=== PATIENT | male | born 1990 | race Caucasian/White ===

== ENCOUNTER → 2020-07-11 12:42 | Outpatient (CLI) | payer OTHER, SELFPAY ==
[2020-07-11] MEDS: COVID-19 VACC, Ad26(JANSSEN)/PF 0.5 ML IM (12:58)
== END ==
PROVIDERS: Visit Provider Internal Medicine
DX: Z23 Encounter for immunization (principal)
CPT/HCPCS: 0031A; 91303

== ENCOUNTER 2021-01-19 07:47 | Emergency (ER) | payer OTHER, SELFPAY ==
[2021-01-19] VITALS (10 sets, daily range): BP systolic 114–143; BP diastolic 69–84; PULSE 48–66; RESP 11–20; TEMP 36.1; O2SAT 100; BMI 20.4
--- NOTE | 2021-01-19 08:01 | DI.CT.S_ITS ---
PROCEDURE: CT HEAD/BRAIN WO CON INDICATIONS: Chest pain TECHNIQUE: Noncontrast 4.5 mm thick angled axial sections acquired from the foramen magnum to the vertex, with coronal and sagittal reformats. For radiation dose reduction, the following was used: automated exposure control, adjustment of mA and/or kV according to patient size. COMPARISON: None. FINDINGS: Image quality: This examination is limited by involuntary motion artifact. Mild streak artifact can be seen through the skull base. CSF spaces: Basal cisterns are patent. No extra-axial fluid collections. Ventricles are normal in size and shape. Brain: No midline shift. No intracranial masses or hemorrhage. Mercado-white matter interface is normal. Skull and face: Calvarium and visualized facial bones are intact, without suspicious lesions. Sinuses: Visualized sinuses and mastoids are clear. IMPRESSION: No acute intracranial process is seen. Dictated by: Barry Trevino M.D. on 01/19/2021 at 8:36 Approved by: Barry Trevino M.D. on 01/19/2021 at 8:37
--- NOTE | 2021-01-19 08:02 | DI.CT.S_ITS ---
PROCEDURE: CT ANGIO CHEST ABDOMEN PELVIS INDICATIONS: Chest pain/flank pain TECHNIQUE: Precontrast 5 mm thick sections acquired from the lung apices to the iliac crests. After the administration of intravenous contrast, 2.5 mm thick sections again acquired from the lung apices to the iliac crests. Maximum intensity projection (MIP) oblique sagittal and coronal reformats were then acquired. For radiation dose reduction, the following was used: automated exposure control. COMPARISON: None. FINDINGS: Image quality: Excellent. AORTA: The thoracoabdominal aorta is within normal limits with no evidence of dissection, aneurysm, or significant stenosis. CHEST: Lungs and pleura: No acute airspace opacities. No pleural effusions or pneumothorax. Central and peripheral airways are patent and normal in caliber. Mediastinum: Heart size is normal. No pericardial effusion. No mediastinal or hilar adenopathy by size criteria. Central pulmonary arteries are normal in size. No filling defects are seen within the pulmonary arteries to indicate pulmonary embolus. Esophagus is normal in caliber. There is diffuse mild thickening of the mid and distal esophagus. No hiatal hernias. Bones and chest wall: No axillary adenopathy by size criteria. Thyroid gland is grossly normal . No suspicious bony lesions. No vertebral body compression fractures. ABDOMEN: Vasculature: Celiac trunk and mesenteric arteries are patent. Renal arteries are also patent. Solid organs: Liver is normal in size and enhancement. Gallbladder is grossly unremarkable . Biliary system is non dilated. Pancreas enhances normally. Spleen is normal in size and enhancement. No adrenal nodules. No right hydronephrosis. Normal renal enhancement bilaterally. Mild left hydronephrosis and left ureteral dilatation. There is a 7 mm diameter calculus at the left ureterovesical junction with Hounsfield units of 644. Peritoneum and bowel: No pneumoperitoneum. Small amount of free fluid within the pelvis. Bowel loops are normal in caliber and wall thickness. Nodes and vessels: No retroperitoneal or mesenteric adenopathy by size criteria. Inferior vena cava is normal in morphology. Miscellaneous: No ventral hernias. PELVIS: Genitourinary: Bladder wall thickness is normal. Miscellaneous: No inguinal hernias or adenopathy. No ventral hernias. Bones: No suspicious bony lesions. No vertebral body compression fractures. IMPRESSION: 1. Distal left ureteral calculus associated with mild left hydronephrosis. 2. Thickening of the esophagus. Initial further assessment with endoscopy is recommended to assess for infection versus inflammation versus neoplasm. 3. Otherwise negative CT angiography of the chest, abdomen, and pelvis. Dictated by: Ashley Xavier M.D. on 01/19/2021 at 10:06 Approved by: Ashley Xavier M.D. on 01/19/2021 at 10:26
--- NOTE | 2021-01-19 08:03 | ED_ITS ---
HPI - Chest Pain General Chief Complaint: Back Pain/Injury Stated Complaint: Back pain, sweats, faint Time Seen by Provider: 01/19/21 07:53 History of Present Illness HPI narrative: Patient brought here by girlfriend. Patient complains of left flank pain and sweats. [place] lightheaded. Pain radiates to the left groin. Patient in the past month has had 3 or 4 episodes of chest pain and 1 episode with syncope. Has been seen by his family doctor during the past 4 weeks and is scheduled for outpatient echocardiogram and Holter monitor. Patient states has had off and on chest pain in the past 5 years. But no workup until this year/past month. Does have family history of coronary disease. No known history of aortic disease/aneurysm/dissection. Patient feeling better at this time. In no distress. Skin is warm and pink and dry. He did have left flank pain. It has improved. Did have right arm tingling which has resolved. No history of Marfan's syndrome. No history of pneumothorax. No urinary complaints. No prior history of kidney stone. Patient in no distress at this time. Related Data Home Medications Medication Instructions Recorded Confirmed cetirizine 10 mg capsule (Zyrtec) 10 mg PO DAILY 01/19/21 01/19/21 citalopram 20 mg tablet 20 mg PO DAILY 01/19/21 01/19/21 Previous Rx's Medication Instructions Recorded hydrocodone 5 mg-acetaminophen 325 1 tab PO Q6H PRN #16 tab 01/19/21 mg tablet promethazine 25 mg tablet 25 mg PO TID PRN #10 tab 01/19/21 tamsulosin 0.4 mg capsule 0.4 mg PO DAILY #7 cap 01/19/21 Allergies Allergy/AdvReac Type Severity Reaction Status Date / Time No Known Drug Allergies Allergy Verified 01/19/21 09:54 Review of Systems Review of Systems Narrative: GENERAL: Denies chills, fatigue, malaise, fever, sweats. HEENT: Denies sinus pain, ear pain, sore throat RESPIRATORY: Denies dyspnea, cough CARDIOVASCULAR: Positive chest pain, negative palpitations GASTROINTESTINAL: Denies nausea, vomiting, abdominal pain, positive flank pain : Denies dysuria, frequency, hematuria MUSCULOSKELETAL: denies muscle or bony pain SKIN: Denies rash, skin lesions NEUROLOGIC: Denies weakness, positive for numbness, positive for dizziness ROS Unobtainable: All systems reviewed & are unremarkable except as noted in HPI and below Patient History Social History Smoking Status: Current every day smoker Exam Narrative Exam Narrative: GENERAL: in no distress, not toxic not dyspneic, shirt removed HEAD: Normocephalic. EYES: Pupils equal round No scleral icterus. ENT: Mucous membranes moist. NECK: Trachea midline. CARDIOVASCULAR: Regular rate and rhythm without murmurs, strong bilateral carotid and radial pulses. RESPIRATORY: Clear to auscultation. Breath sounds equal bilaterally. No wheezes, rales, or rhonchi. GASTROINTESTINAL: Abdomen soft, non-tender, no bruit, abdomen is flat nontender, no peritoneal signs, bowel sounds present EXTREMITIES: No gross deformities. BACK: No flank tenderness. NEURO: AOx4. Clear speech no facial droop light touch intact to bilateral face hands and legs. 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 It will be 1 hour until they get to imaging No new issues during course of stay. Orders Ordered: Discontinued Medications Sodium Chloride (Normal Saline 0.9%) 1,000 mls @ 1,000 mls/hr IV BOLUS ONE Stop: 01/19/21 09:01 Last Infusion: 01/19/21 11:34 Dose: 0 mls/hr Documented by: Admin: 01/19/21 09:49 Dose: 1,000 mls/hr Documented by: KIMBERLY Ketorolac Tromethamine (Ketorolac 30 Mg/Ml Vial) 15 mg IV NOW ONE Stop: 01/19/21 10:57 Last Admin: 01/19/21 11:27 Dose: 15 mg Documented by: LEIDA Tamsulosin HCl (Tamsulosin 0.4 Mg Capsule) 0.4 mg PO NOW ONE Stop: 01/19/21 11:50 Last Admin: 01/19/21 12:06 Dose: 0.4 mg Documented by: BTONER Reevaluation(s) Reevaluation #1: Patient pain-free at this time. Echocardiogram results are pending. Updated patient and girlfriend results of CT imaging. Pain-free at this time. Time: 11:49 Reevaluation #2: Patient pain-free. Able to urinate and void here. Reviewed results with patient and girlfriend and echocardiogram Time: 12:14 Consultations Consultation #1: Spoke with primary care, Dr. Jennings. Patient could be discharged and follow up with him for outpatient Holter monitor and stress test. Patient can be follow up with Urology for his new finding today of kidney stone. Time: 11:59 Vital Signs Vital signs: Vital Signs - 8 hr 01/19/21 08:00 01/19/21 08:13 01/19/21 08:30 Temperature 96.9 F L Pulse Rate 54 L 66 54 L Respiratory Rate 20 Blood Pressure 143/77 H 116/71 Pulse Oximetry 100 100 100 01/19/21 09:45 01/19/21 09:46 01/19/21 10:00 Temperature Pulse Rate 61 54 L 48 L Respiratory Rate 11 L Blood Pressure 114/69 126/84 Pulse Oximetry 100 100 01/19/21 10:34 01/19/21 11:00 01/19/21 11:30 Temperature Pulse Rate 55 L 57 L 60 Respiratory Rate 16 17 11 L Blood Pressure 132/81 132/71 Pulse Oximetry 100 MDM - Chest Pain Differential Diagnosis Differential diagnosis: Likely pneumothorax, stable angina, unstable angina pectoris, atypical chest pain, chest pain and other (Pulmonary embolism/dissection) Lab Data Result diagrams: 01/19/21 08:00 01/19/21 08:00 Labs: Lab Results 01/19/21 01/19/21 01/19/21 Range/Units 08:00 08:00 08:45 WBC 6.6 (4.5-11.0) X10^3/uL RBC 4.72 (4.5-5.9) X10^6/uL Hgb 14.2 (13.5-17.5) g/dL Hct 41.8 (41-53) % MCV 88.6 (80-100) fL MCH 30.2 (26-34) PG MCHC 34.1 (30-36) % RDW 13.7 (11.6-14.8) % Plt Count 158 (150-400) X10^3/uL Neut % (Auto) 57.0 (50-75) % Lymph % (Auto) 32.0 (25-40) % [place] % (Auto) 7.0 (3-14) % Eos % (Auto) 3.0 (2-4) % Baso % (Auto) 1.0 (0-2) % Neut # (Auto) 3800 (5419-7864) /uL Lymph # (Auto) 2100 (0142-6825) /uL [place] # (Auto) 500 (0-900) /uL Eos # (Auto) 200 (0-450) /uL Baso # (Auto) 100 (0-100) /uL Sodium 140 (137-145) mmol/L Potassium 4.2 (3.4-5.1) mmol/L Chloride 103 (98-107) mmol/L Carbon Dioxide 28 (22-32) mmol/L BUN 11 (9-20) mg/dL Creatinine 0.85 (0.66-1.25) mg/dL Estimated GFR > 60.0 (>60) mL/min BUN/Creatinine Ratio 12.9 (6-22) Glucose 126 H (70-100) mg/dL Calcium 9.5 (8.4-10.2) mg/dL Magnesium 1.9 (1.6-2.3) mg/dL Total Bilirubin 0.3 (0.2-1.3) mg/dL AST 26 (17-59) IU/L ALT 23 (<50) IU/L Alkaline Phosphatase 54 (38-126) U/L Total Creatine Kinase 109 (55-170) U/L CK-MB (CK-2) 0.52 (<2.37) ng/mL CK-MB (CK-2) Rel Index 0.5 L (1.5-5.0) % Troponin I < 0.012 (0.01-0.034) ng/mL Total Protein 7.2 (6.3-8.2) g/dL Albumin 4.5 (3.5-5.0) g/dL Globulin 2.7 (1.7-4.1) g/dL Albumin/Globulin Ratio 1.7 (1.0-2.8) Urine RBC 1-5/hpf (0-5/HPF) Urine WBC 0-1/hpf (0-5/HPF) Ur Squamous Epith Cells 1-5 /hpf (0-5/HPF) Urine Bacteria None seen (None) Ur Culture Indicated? Cult not indicated SARS-CoV-2 (PCR) (Negative) 01/19/21 Range/Units 09:54 WBC (4.5-11.0) X10^3/uL RBC (4.5-5.9) X10^6/uL Hgb (13.5-17.5) g/dL Hct (41-53) % MCV (80-100) fL MCH (26-34) PG MCHC (30-36) % RDW (11.6-14.8) % Plt Count (150-400) X10^3/uL Neut % (Auto) (50-75) % Lymph % (Auto) (25-40) % [place] % (Auto) (3-14) % Eos % (Auto) (2-4) % Baso % (Auto) (0-2) % Neut # (Auto) (1755-7148) /uL Lymph # (Auto) (8212-6236) /uL [place] # (Auto) (0-900) /uL Eos # (Auto) (0-450) /uL Baso # (Auto) (0-100) /uL Sodium (137-145) mmol/L Potassium (3.4-5.1) mmol/L Chloride (98-107) mmol/L Carbon Dioxide (22-32) mmol/L BUN (9-20) mg/dL Creatinine (0.66-1.25) mg/dL Estimated GFR (>60) mL/min BUN/Creatinine Ratio (6-22) Glucose (70-100) mg/dL Calcium (8.4-10.2) mg/dL Magnesium (1.6-2.3) mg/dL Total Bilirubin (0.2-1.3) mg/dL AST (17-59) IU/L ALT (<50) IU/L Alkaline Phosphatase (38-126) U/L Total Creatine Kinase (55-170) U/L CK-MB (CK-2) (<2.37) ng/mL CK-MB (CK-2) Rel Index (1.5-5.0) % Troponin I (0.01-0.034) ng/mL Total Protein (6.3-8.2) g/dL Albumin (3.5-5.0) g/dL Globulin (1.7-4.1) g/dL Albumin/Globulin Ratio (1.0-2.8) Urine RBC (0-5/HPF) Urine WBC (0-5/HPF) Ur Squamous Epith Cells (0-5/HPF) Urine Bacteria (None) Ur Culture Indicated? SARS-CoV-2 (PCR) Negative (Negative) Urine Dip Bedside Urine Glucose Negative Bedside Urine Bilirubin - Negative Bedside Urine Ketone - Negative Urine Specific [place] 1.020 Bedside Urine Occult Blood +++ Bedside Urine pH 6.5 Bedside Urine Protein +/- 15 Bedside Urine Urobilinogen - Negative Bedside Urine Nitrite - Negative Bedside Urine Leukocytes - Negative Esterase Imaging Data CT scan - head: Radiologist's Impression: [address] [address] [address] Scan Report Signed Patient: Nesha Reed MR#: [id number] : 1990 Acct:[id number] Age/Sex: 31 / M Date of Service: 01/19/21 Loc: ED Accession Number: [id number] ?? Procedure: CT head/brain wo con Ordering Provider: Sarah Fabian MD PROCEDURE:? CT HEAD/BRAIN WO CON ? INDICATIONS:? Chest pain ? TECHNIQUE:? Noncontrast 4.5 mm thick angled axial sections acquired from the foramen magnum to the vertex, with coronal and sagittal reformats.? For radiation dose reduction, the following was used:? automated exposure control, adjustment of mA and/or kV according to patient size.? ? COMPARISON:? None. ? FINDINGS:? Image quality:? This examination is limited by involuntary motion artifact.? Mild streak artifact can be seen through the skull base. ? CSF spaces:? Basal cisterns are patent.? No extra-axial fluid collections.? Ventricles are normal in size and shape.? ? Brain:? No midline shift.? No intracranial masses or hemorrhage.? Mercado-white matter interface is normal.? ? Skull and face:? Calvarium and visualized facial bones are intact, without suspicious lesions.? ? Sinuses:? Visualized sinuses and mastoids are clear.? ? IMPRESSION:? ? No acute intracranial process is seen.? ? ? Dictated by: Barry Trevino M.D. on 01/19/2021 at 8:36 ? ? Approved by: Barry Trevino M.D. on 01/19/2021 at 8:37 ? CT angiogram chest abdomen pelvis: Radiologist's Impression: [place] [address] CT Scan Report Signed Patient: Nesha Reed MR#: [id number] : 1990 Acct:[id number] Age/Sex: 31 / M Date of Service: 01/19/21 Loc: ED Accession Number: [id number] ?? Procedure: CT angio chest abdomen pelvis Ordering Provider: Sarah Fabian MD PROCEDURE:? CT ANGIO CHEST ABDOMEN PELVIS ? INDICATIONS:? Chest pain/flank pain ? TECHNIQUE:? Precontrast 5 mm thick sections acquired from the lung apices to the iliac crests.? After the administration of intravenous contrast, 2.5 mm thick sections again acquired from the lung apices to the iliac crests.? Maximum intensity projection (MIP) oblique sagittal and coronal reformats were then acquired.? For radiation dose reduction, the following was used:? automated exposure control.? ? COMPARISON:? None. ? FINDINGS:? Image quality:? Excellent.? ? AORTA:? The thoracoabdominal aorta is within normal limits with no evidence of dissection, aneurysm, or significant stenosis. ? CHEST:? Lungs and pleura:? No acute airspace opacities.? No pleural effusions or pneumothorax.? Central and peripheral airways are patent and normal in caliber.? ? Mediastinum:? Heart size is normal.? No pericardial effusion.? No mediastinal or hilar adenopathy by size criteria.? Central pulmonary arteries are normal in size.? No filling defects are seen within the pulmonary arteries to indicate pulmonary embolus.? Esophagus is normal in caliber.? There is diffuse mild thickening of the mid and distal esophagus.? No hiatal hernias.? ? Bones and chest wall:? No axillary adenopathy by size criteria.? Thyroid gland is grossly normal .? No suspicious bony lesions.? No vertebral body compression fractures.? ? ? ABDOMEN:? Vasculature:? Celiac trunk and mesenteric arteries are patent.? Renal arteries are also patent.? ? Solid organs:? Liver is normal in size and enhancement.? Gallbladder is grossly unremarkable .? Biliary system is non dilated.? Pancreas enhances normally.? Spleen is normal in size and enhancement.? No adrenal nodules.? No right hydronephrosis.? Normal renal enhancement bilaterally.? Mild left hydronephrosis and left ureteral dilatation.? There is a 7 mm diameter calculus at the left ureterovesical junction with Hounsfield units of 644. ? Peritoneum and bowel:? No pneumoperitoneum.? Small amount of free fluid within the pelvis.? Bowel loops are normal in caliber and wall thickness.? ? Nodes and vessels:? No retroperitoneal or mesenteric adenopathy by size criteria.? Inferior vena cava is normal in morphology.? ? Miscellaneous:? No ventral hernias.? ? ? PELVIS:? Genitourinary:? Bladder wall thickness is normal.? ? Miscellaneous:? No inguinal hernias or adenopathy.? No ventral hernias.? ? Bones:? No suspicious bony lesions.? No vertebral body compression fractures.? ? ? IMPRESSION:? 1. Distal left ureteral calculus associated with mild left hydronephrosis. 2. Thickening of the esophagus.? Initial further assessment with endoscopy is recommended to assess for infection versus inflammation versus neoplasm. 3. Otherwise negative CT angiography of the chest, abdomen, and pelvis. ? Dictated by: Ashley Xavier M.D. on 01/19/2021 at 10:06 ? ? Approved by: Ashley Xavier M.D. on 01/19/2021 at 10:26 ? Echocardiogram: Radiologist's Impression: [place] [address] Echocardiography Report Signed Patient: Nesha Reed MR#: [id number] : 1990 Acct:[id number] Age/Sex: 31 / M Date of Service: 01/19/21 Loc: ED Accession Number: [id number] ?? Procedure: EC echo limited Ordering Provider: Sarah Fabian MD ? [facility] +---------+? [facility]? +---------+ : ? :? [address] ? : ? : : ? :? [place], [place] ? : ? : : ? :? [address] ? : ? : : ? : ? Phone: [phone] : ? : [phone]? [phone]? +---------+ ? Echocardiogram Report + + :Name: NESHA REED ? Study Date: 01/19/2021? Height: 73 in : :Hospital ? ? ReadingLocation:? Weight: 155 lb: : ? Gender: Male? BSA: 1.9 m2 ? : :: 1990? Age: 31 yrs ? : :Reason For Study: Chest pain / syncope ? : :Ordering Physician:? : :KATIE ? Performed By: Karl Cates? : :Referring: SARAH FABIAN ? : + + Interpretation Summary The ejection fraction is estimated to be 60-65%. ? The right ventricle is grossly normal size. The right ventricular systolic function is normal. ? The IVC is dilated (diameter is greater than 2.1 cm) and it collapses less than 50% with a sniff. This suggests a high right atrial pressure of 15 mm Hg. ? Procedure: ? A two-dimensional transthoracic echocardiogram with color flow and Doppler was performed in limited views only to assess LVEF. Images from the parasternal window were difficult to obtain and are suboptimal in quality. There is no prior echocardiogram noted for this patient. The patient was in normal sinus rhythm during the exam. Left Ventricle: ? The left ventricle is normal in size and wall thickness. The ejection fraction is estimated to be 60-65%. Right Ventricle: ? The right ventricle is grossly normal size. The right ventricular systolic function is normal. Atria: ? Both atria are normal in size. Mitral Valve: ? The mitral valve leaflets appear normal. There is no evidence of stenosis, fluttering, or prolapse. Tricuspid Valve: ? The tricuspid valve is normal. Pulmonary artery pressures cannot be estimated because of the lack of a measurable TR jet velocity but the IVC suggests a CVP of around 15 mmHg. There is trace tricuspid regurgitation. Great Vessels: ? The IVC is dilated (diameter is greater than 2.1 cm) and it collapses less than 50% with a sniff. This suggests a high right atrial pressure of 15 mm Hg. Pericardium/ Pleura ? There is no pericardial effusion. There is no pleural effusion. ? MMode/2D Measurements & Calculations LVIDd: 5.1 cm ? IVC diam: 2.2 cm LVIDs: 4.4 cm FS: 13.7 % IVSd: 0.50 cm LVPWd: 1.0 cm LV turcios. diameter/BSA (cm/m^2): 2.6 LV sys. diameter/BSA (cm/m^2): 2.3 ? Reading Physician:11:49 AM ECG Data Interpretation: Sinus bradycardia rate [address] elevation or depression. Incomplete right bundle branch block. MDM Narrative Medical decision making narrative: Appropriate for discharge home. I reviewed results with primary care Dr. Jennings, patient can be discharged home follow-up with urology for today's complaints of kidney stone. Pain is controlled. Patient here today for any chest pain. EKG blood work echocardiogram was completed here. He will continue patient workup for his ongoing chest pain in the past month with Holter monitor. Echocardiogram was completed here. Laboratory studies imaging reassuring. Return precautions reviewed with patient and girlfriend. They agree and comfortable with discharge and follow-up with Dr. Jennings. No repeat heart enzymes indicated this time. Patient here today for flank pain/kidney stone. Referral for Urology given. Return precautions reviewed with them. Not toxic at discharge. No chest pain during this course of stay Discharge Plan Departure Patient Disposition: Home Clinical Impression: Left ureteral stone Instructions: DI for Kidney Stones, DI for Atypical Chest Pain Activity Restrictions/Additional Instructions: See your family doctor as scheduled for Holter monitoring for your heart. Exams and laboratory studies and radiographs have been reassuring today. No driving or operating machinery when taking prescribed pain medication free kidney stone. Call Dr. Silvestre office today for office re-evaluation of your kidney stone found today. Drink plenty of water and fluids. Return if worse or for any questions or concerns Prescriptions: New tamsulosin 0.4 mg capsule 0.4 mg PO DAILY Qty: 7 0RF hydrocodone-acetaminophen 5-325 mg tablet 1 tab PO Q6H PRN (Reason: pain) Qty: 16 0RF promethazine 25 mg tablet 25 mg PO TID PRN (Reason: nausea and vomiting) Qty: 10 0RF No Action citalopram 20 mg tablet 20 mg PO DAILY 0RF Zyrtec 10 mg Capsule 10 mg PO DAILY 0RF Referrals: Rosamaria Silvestre MD [Physician] - Emilio Jennings MD [Physician] -
[2021-01-19 08:06] LABS: Add Manual Diff / Slide Review NO; Basophils Absolute Auto 100 /uL (0-100); Eosinophils Absolute Auto 200 /uL (0-450); Hematocrit 41.8 % (41-53); Hemoglobin 14.2 g/dL (13.5-17.5); Lymphocytes Absolute Auto 2100 /uL (1100-4500); Mean Corpuscular HGB Conc 34.1 % (30-36); Mean Corpuscular Hemoglobin 30.2 PG (26-34); Mean Corpuscular Volume 88.6 fL (80-100); Monocytes Absolute Auto 500 /uL (0-900); Neutrophils Absolute Auto 3800 /uL (1500-7000); Platelet Count 158 X10^3/uL (150-400); Red Blood Cell Count 4.72 X10^6/uL (4.5-5.9); Red Cell Distribution Width 13.7 % (11.6-14.8); White Blood Cell Count 6.6 X10^3/uL (4.5-11.0)
[2021-01-19 08:18] LABS: Alanine Aminotransferase 23 IU/L (<50); Albumin 4.5 g/dL (3.5-5.0); Albumin Globulin Ratio 1.7 (1.0-2.8); Alkaline Phosphatase 54 U/L (38-126); Aspartate Aminotransferase 26 IU/L (17-59); BUN Creatinine Ratio 12.9 (6-22); Bilirubin Total 0.3 mg/dL (0.2-1.3); Blood Urea Nitrogen 11 mg/dL (9-20); Calcium 9.5 mg/dL (8.4-10.2); Carbon Dioxide 28 mmol/L (22-32); Chloride 103 mmol/L (98-107); Creatine Kinase 109 U/L (55-170); Estimated Glomerular Filt Rate > 60.0 mL/min (>60); Globulin 2.7 g/dL (1.7-4.1); Glucose 126 mg/dL (70-100); HEMOLYSIS < 15 (0-50); Magnesium 1.9 mg/dL (1.6-2.3); Potassium 4.2 mmol/L (3.4-5.1); Sodium 140 mmol/L (137-145); Total Protein 7.2 g/dL (6.3-8.2)
[2021-01-19 08:29] LABS: Troponin I < 0.012 ng/mL (0.01-0.034)
[2021-01-19 08:33] LABS: CKMB % Relative Index 0.5 % (1.5-5.0); Creatine Kinase MB 0.52 ng/mL (<2.37)
[2021-01-19 09:47] LABS: Bacteria Urine None Seen; Culture Indicated Urine Cult Not Indicated; RBC Urine 1-5/HPF (0-5/HPF); Squamous Epithelial Cell Urine 1-5 /HPF (0-5/HPF); WBC Urine 0-1/HPF (0-5/HPF)
--- NOTE | 2021-01-19 09:47 | DI.ECHO.S_ITS ---
[facility] +---------+ : : [address] : [address] [address] : : : : [id number] : : : : Phone: [phone]+ Echocardiogram Report + + :Name: NESHA STEWARD Study Date: 01/19/2021 Height: 73 in : :[facility] ReadingLocation: Weight: 155 lb: : Gender: Male BSA: 1.9 m2 : :: 1990 Age: 31 yrs : :Reason For Study: Chest pain / syncope : :Ordering Physician: : :KATIE Performed By: Karl Cates : :Referring: SARAH FABIAN : + + Interpretation Summary The ejection fraction is estimated to be 60-65%. The right ventricle is grossly normal size. The right ventricular systolic function is normal. The IVC is dilated (diameter is greater than 2.1 cm) and it collapses less than 50% with a sniff. This suggests a high right atrial pressure of 15 mm Hg. Procedure: A two-dimensional transthoracic echocardiogram with color flow and Doppler was performed in limited views only to assess LVEF. Images from the parasternal window were difficult to obtain and are suboptimal in quality. There is no prior echocardiogram noted for this patient. The patient was in normal sinus rhythm during the exam. Left Ventricle: The left ventricle is normal in size and wall thickness. The ejection fraction is estimated to be 60-65%. Right Ventricle: The right ventricle is grossly normal size. The right ventricular systolic function is normal. Atria: Both atria are normal in size. Mitral Valve: The mitral valve leaflets appear normal. There is no evidence of stenosis, fluttering, or prolapse. Tricuspid Valve: The tricuspid valve is normal. Pulmonary artery pressures cannot be estimated because of the lack of a measurable TR jet velocity but the IVC suggests a CVP of around 15 mmHg. There is trace tricuspid regurgitation. Great Vessels: The IVC is dilated (diameter is greater than 2.1 cm) and it collapses less than 50% with a sniff. This suggests a high right atrial pressure of 15 mm Hg. Pericardium/ Pleura There is no pericardial effusion. There is no pleural effusion. MMode/2D Measurements & Calculations LVIDd: 5.1 cm IVC diam: 2.2 cm LVIDs: 4.4 cm FS: 13.7 % IVSd: 0.50 cm LVPWd: 1.0 cm LV turcios. diameter/BSA (cm/m^2): 2.6 LV sys. diameter/BSA (cm/m^2): 2.3 Reading Physician:11:49 AM
[2021-01-19] MEDS: SODIUM CHLORIDE 0.9% 1,000 ML 1000 ML IV (09:49)
--- NOTE | 2021-01-19 10:05 | PC.NURSE ---
pt states when the pain started he got hot, chills and nauseated.
[2021-01-19 10:56] LABS: COVID19 - ADMIT (NP swab/PCR) Negative (Negative)
[2021-01-19] MEDS: KETOROLAC 30 MG/ML VIAL 15 MG IV (11:27)
[2021-01-19] MEDS: TAMSULOSIN 0.4 MG CAPSULE PO (12:06)
== END 2021-01-19 12:16 | disposition home or self-care (01) ==
PROVIDERS: Emergency Provider Emergency Medicine
DX: N20.1 Calculus of ureter (principal); R00.1 Bradycardia, unspecified; R42 Dizziness and giddiness; R07.9 Chest pain, unspecified; Z20.822 Contact with and (suspected) exposure to COVID-19
CPT/HCPCS: 36415; 70450; 71275; 74174; 80053; 81003; 81015; 82550; 82553; 83735; 84484; 85025; 87635; 93005; 93307; 96361; 96374; 99284; C9803; J1885; Q9967

== ENCOUNTER 2021-01-22 06:46 | Emergency (ER) | payer OTHER, SELFPAY ==
[2021-01-22] VITALS (12 sets, daily range): BP systolic 106–150; BP diastolic 55–89; PULSE 45–65; RESP 17–22; TEMP 36.3; O2SAT 97–100; BMI 20.4
[2021-01-22] MEDS: ONDANSETRON 4 MG/2 ML INJ IV (07:09)
[2021-01-22] MEDS: HYDROMORPHONE 1 MG INJ IV (07:09)
[2021-01-22 07:22] LABS: Alanine Aminotransferase 29 IU/L (<50); Albumin 4.9 g/dL (3.5-5.0); Albumin Globulin Ratio 1.7 (1.0-2.8); Alkaline Phosphatase 68 U/L (38-126); Aspartate Aminotransferase 36 IU/L (17-59); BUN Creatinine Ratio 15.1 (6-22); Bilirubin Total 0.7 mg/dL (0.2-1.3); Blood Urea Nitrogen 13 mg/dL (9-20); Calcium 9.9 mg/dL (8.4-10.2); Carbon Dioxide 27 mmol/L (22-32); Chloride 105 mmol/L (98-107); Estimated Glomerular Filt Rate > 60.0 mL/min (>60); Globulin 2.9 g/dL (1.7-4.1); Glucose 118 mg/dL (70-100); HEMOLYSIS 29 (0-50); Lipase 195 U/L (23-300); Potassium 3.8 mmol/L (3.4-5.1); Sodium 141 mmol/L (137-145); Total Protein 7.8 g/dL (6.3-8.2)
--- NOTE | 2021-01-22 07:26 | ED_ITS ---
HPI - Abdominal Pain General Chief Complaint: Abdominal Pain Stated Complaint: nausea/back pain x3 days Time Seen by Provider: 01/22/21 06:48 Source: patient Mode of arrival: Ambulatory Limitations: no limitations History of Present Illness HPI narrative: This is a 31-year-old male comes emergency department with left flank and vomiting. Patient was seen on the he had a near syncopal or syncopal episode for about 2nd and was found to be bradycardic but also found to have a left kidney stone that was 7 mm. Patient states he had been able to control his pain with medication at home for the past 2 days although he has been having some pain. This morning he woke up he could not control his pain with oral medication and started vomiting and could not stop. Patient has not had any fevers he is aware of. He states he is significantly uncomfortable. He has noted his urine has been dark he has not appreciated any gross hematuria. He does think there has been a little decrease in output. He states he has pain in the left flank and a little bit suprapubically. Patient has had multiple bowel movements. Patient is set up for a Holter monitor at 3:00 p.m. today secondary to his persistent bradycardia. He had echo here in the department and was discharged home to follow-up with his primary care Dr. Jennings. He has not had any prior urologic intervention does not have a urologist. Patient had repeat orthopedic repair on his right upper extremity but no other prior surgeries. He does not have any known drug allergies. He is accompanied by his . Related Data Home Medications Medication Instructions Recorded Confirmed cetirizine 10 mg capsule (Zyrtec) 10 mg PO DAILY 01/19/21 01/19/21 citalopram 20 mg tablet 20 mg PO DAILY 01/19/21 01/19/21 Previous Rx's Medication Instructions Recorded hydrocodone 5 mg-acetaminophen 325 1 tab PO Q6H PRN #16 tab 01/19/21 mg tablet promethazine 25 mg tablet 25 mg PO TID PRN #10 tab 01/19/21 tamsulosin 0.4 mg capsule 0.4 mg PO DAILY #7 cap 01/19/21 oxycodone 5 mg tablet 5 mg PO Q4H PRN #20 tab 01/22/21 promethazine 25 mg tablet 25 mg PO TID PRN #10 tab 01/22/21 tamsulosin 0.4 mg capsule (Flomax) 0.4 mg PO DAILY #30 cap 01/22/21 tramadol 50 mg tablet 50 mg PO Q6H PRN #14 tab 01/22/21 Allergies Allergy/AdvReac Type Severity Reaction Status Date / Time No Known Drug Allergies Allergy Verified 01/19/21 09:54 Review of Systems Review of Systems ROS Unobtainable: All systems reviewed & are unremarkable except as noted in HPI and below Patient History Social History Smoking Status: Current every day smoker Smoking Status: Current every day smoker Substance Use Type: marijuana Exam Narrative Exam Narrative: GENERAL: Alert and oriented x three, thin male in moderate distress. HEENT: Head normocephalic, atraumatic, EOMI, pupils reactive, face symmetric, moist mucous membranes NECK: Supple, full range of motion CARDIOVASCULAR: Regular rate and rhythm without murmurs, rubs or gallops. RESPIRATORY: Breath sounds equal bilaterally, no wheezes rales or rhonchi. ABDOMEN: Soft, nontender. Normoactive bowel sounds all 4 quadrants. No guarding or rebound, rigidity, no mass. Patient actively vomiting on exam. : No CVA tenderness EXTREMITIES: Normal range of motion, no clubbing or edema. Neurovascularly intact NEUROLOGICAL: Cranial nerves II through XII grossly intact. Moving all extremities SKIN: Warm, dry, no petechiae, no rashes or lesions. Initial Vital Signs Initial Vital Signs: Vital Signs Temperature 97.4 F L 01/22/21 06:55 Pulse Rate 65 01/22/21 06:55 Respiratory Rate 22 01/22/21 06:55 Blood Pressure 137/63 01/22/21 06:55 Pulse Oximetry 100 01/22/21 06:55 Course Orders Ordered: Discontinued Medications Hydromorphone HCl (Hydromorphone 1 Mg Inj) 1 mg IV NOW ONE Stop: 01/22/21 07:05 Last Admin: 01/22/21 07:09 Dose: 1 mg Documented by: JENNY Sodium Chloride (Normal Saline 0.9%) 1,000 mls @ 1,000 mls/hr IV BOLUS ONE Stop: 01/22/21 08:33 Last Infusion: 01/22/21 09:22 Dose: 0 mls/hr Documented by: Admin: 01/22/21 07:47 Dose: 1,000 mls/hr Documented by: JENNY Ketorolac Tromethamine (Ketorolac 30 Mg/Ml Vial) 15 mg IV NOW ONE Stop: 01/22/21 07:34 Last Admin: 01/22/21 07:48 Dose: 15 mg Documented by: JENNY Lorazepam (Lorazepam 2 Mg/Ml Inj) 0.5 mg IV NOW ONE Stop: 01/22/21 07:34 Last Admin: 01/22/21 07:48 Dose: 0.5 mg Documented by: JENNY Ondansetron HCl (Ondansetron 4 Mg/2 Ml Inj) 4 mg IV NOW ONE Stop: 01/22/21 07:05 Last Admin: 01/22/21 07:09 Dose: 4 mg Documented by: JENNY Reevaluation(s) Reevaluation #1: Patient is feeling significantly improved. States that the nausea medication pain medications have been working up until this point when he woke up vomiting and then was not able to control it. He states he does have an appointment set up for the following week with Urology. Time: 10:08 Consultations Consultation #1: Dr. Silvestre states that if patient has persistent vomiting then the he should go to the OR. He does an appointment set up at this time. He asked that we add Flomax for the next 30 days. Increase his pain medications to oxycodone 5 mg up to every 4 hours as well as 1000 mg of Tylenol and tramadol 50 mg q.6 hours. Antinausea medication. And patient with strict return precautions. We discussed that patient seems comfortable to return home at this time but it is likely he will not passed stone. This was shared with the patient as well. His would likely prefer him to be admitted at this time but he would likely not be taking care of today in the OR and would be delayed until a different day. Time: 10:31 Vital Signs Vital signs: Vital Signs - 8 hr 01/22/21 06:55 01/22/21 07:20 01/22/21 07:21 Temperature 97.4 F L Pulse Rate 65 46 L 45 L Respiratory Rate 22 18 Blood Pressure 137/63 138/82 Pulse Oximetry 100 100 98 01/22/21 07:30 01/22/21 07:45 01/22/21 08:00 Temperature Pulse Rate 48 L 47 L 45 L Respiratory Rate Blood Pressure 150/89 H Pulse Oximetry 100 100 100 01/22/21 08:01 01/22/21 08:30 01/22/21 09:00 Temperature Pulse Rate 45 L 54 L 54 L Respiratory Rate Blood Pressure 131/60 112/59 L 106/59 L Pulse Oximetry 100 97 98 01/22/21 09:30 01/22/21 09:51 01/22/21 10:00 Temperature Pulse Rate 52 L 55 L 58 L Respiratory Rate 17 18 Blood Pressure 110/60 112/55 L 111/60 Pulse Oximetry 98 100 100 MDM - Abdominal Pain Lab Data Result diagrams: 01/22/21 07:00 01/22/21 07:00 Labs: Lab Results 01/22/21 01/22/21 01/22/21 Range/Units 07:00 07:00 07:57 WBC 10.1 (4.5-11.0) X10^3/uL RBC 4.86 (4.5-5.9) X10^6/uL Hgb 14.7 (13.5-17.5) g/dL Hct 42.8 (41-53) % MCV 88.1 (80-100) fL MCH 30.3 (26-34) PG MCHC 34.4 (30-36) % RDW 13.5 (11.6-14.8) % Plt Count 160 (150-400) X10^3/uL Neut % (Auto) 74.9 (50-75) % Lymph % (Auto) 16.9 L (25-40) % Becker % (Auto) 6.1 (3-14) % Eos % (Auto) 1.2 L (2-4) % Baso % (Auto) 0.9 (0-2) % Neut # (Auto) 7600 H (5225-2524) /uL Lymph # (Auto) 1700 (1525-5075) /uL Becker # (Auto) 600 (0-900) /uL Eos # (Auto) 100 (0-450) /uL Baso # (Auto) 100 (0-100) /uL Sodium 141 (137-145) mmol/L Potassium 3.8 (3.4-5.1) mmol/L Chloride 105 (98-107) mmol/L Carbon Dioxide 27 (22-32) mmol/L BUN 13 (9-20) mg/dL Creatinine 0.86 (0.66-1.25) mg/dL Estimated GFR > 60.0 (>60) mL/min BUN/Creatinine Ratio 15.1 (6-22) Glucose 118 H (70-100) mg/dL Calcium 9.9 (8.4-10.2) mg/dL Total Bilirubin 0.7 (0.2-1.3) mg/dL AST 36 (17-59) IU/L ALT 29 (<50) IU/L Alkaline Phosphatase 68 (38-126) U/L Total Protein 7.8 (6.3-8.2) g/dL Albumin 4.9 (3.5-5.0) g/dL Globulin 2.9 (1.7-4.1) g/dL Albumin/Globulin Ratio 1.7 (1.0-2.8) Lipase 195 (23-300) U/L Urine RBC (0-5/HPF) Urine WBC (0-5/HPF) Ur Transition Epith Cell (0-5/HPF) Amorphous Sediment Urine Bacteria (None) Ur Culture Indicated? SARS-CoV-2 (PCR) Negative (Negative) 01/22/21 Range/Units 09:50 WBC (4.5-11.0) X10^3/uL RBC (4.5-5.9) X10^6/uL Hgb (13.5-17.5) g/dL Hct (41-53) % MCV (80-100) fL MCH (26-34) PG MCHC (30-36) % RDW (11.6-14.8) % Plt Count (150-400) X10^3/uL Neut % (Auto) (50-75) % Lymph % (Auto) (25-40) % Becker % (Auto) (3-14) % Eos % (Auto) (2-4) % Baso % (Auto) (0-2) % Neut # (Auto) (5026-5800) /uL Lymph # (Auto) (5582-7869) /uL Becker # (Auto) (0-900) /uL Eos # (Auto) (0-450) /uL Baso # (Auto) (0-100) /uL Sodium (137-145) mmol/L Potassium (3.4-5.1) mmol/L Chloride (98-107) mmol/L Carbon Dioxide (22-32) mmol/L BUN (9-20) mg/dL Creatinine (0.66-1.25) mg/dL Estimated GFR (>60) mL/min BUN/Creatinine Ratio (6-22) Glucose (70-100) mg/dL Calcium (8.4-10.2) mg/dL Total Bilirubin (0.2-1.3) mg/dL AST (17-59) IU/L ALT (<50) IU/L Alkaline Phosphatase (38-126) U/L Total Protein (6.3-8.2) g/dL Albumin (3.5-5.0) g/dL Globulin (1.7-4.1) g/dL Albumin/Globulin Ratio (1.0-2.8) Lipase (23-300) U/L Urine RBC 5-10/hpf H (0-5/HPF) Urine WBC 1-5/hpf (0-5/HPF) Ur Transition Epith Cell 0-1/hpf (0-5/HPF) Amorphous Sediment 3+ Urine Bacteria None seen (None) Ur Culture Indicated? Culture not indicate SARS-CoV-2 (PCR) (Negative) Point of care testing: Urine Dip Bedside Urine Glucose Negative Bedside Urine Bilirubin - Negative Bedside Urine Ketone ++ 40 Urine Specific [place] 1.015 Bedside Urine Occult Blood +++ Bedside Urine pH 8 Bedside Urine Protein + 30 Bedside Urine Urobilinogen - Negative Bedside Urine Nitrite - Negative Bedside Urine Leukocytes - Negative Esterase Imaging Data CT scan - abdomen/pelvis: Radiologist's Impression: [address] [address] [address] Scan Report Signed Patient: Jung Reed MR#: [id number] : 1990 Acct:[id number] Age/Sex: 31 / M Date of Service: 01/22/21 Loc: ED Accession Number: [id number] ?? Procedure: CT kidney ureter bladder (KUB) Ordering Provider: Belkis Santiago D.O. PROCEDURE:? CT KIDNEY URETER BLADDER (KUB) ? INDICATIONS:? vomiting, recent L kidney stone ? TECHNIQUE:? Axial sections were acquired from the lung bases to the pubic symphysis.? Coronal and sagittal reformats were performed.? For radiation dose reduction, the following was used: ?automated exposure control, adjustment of mA and/or kV according to patient size.? ? COMPARISON:? None. ? FINDINGS:? Image quality:? Excellent.? ? Lung bases:? Unremarkable.? ? Heart:? No significant findings. ? URINARY: Right Kidney:? No stones or hydronephrosis. Right Ureter:? No hydroureter.? ? Left Kidney:? Moderate hydronephrosis.? No renal calculus. Left Ureter:? A 7 mm calculus is seen in the distal left ureter at the ureterovesicular junction.? There is moderate hydroureter. ? Bladder:? Normal wall thickness. No stones. ? ? ? ABDOMEN: Liver:? Unremarkable.? ? Gallbladder:? Unremarkable. Biliary ducts:? Unremarkable.? ? Pancreas:? Unremarkable.? ? Spleen:? Unremarkable.? ? Adrenal Glands:? Unremarkable.? ? ? Stomach and Bowel:? Stomach, small bowel loops, and colon are unremarkable.? Normal retrocecal appendix. Peritoneum:? No abnormal intraperitoneal fluid.? No free air.? ? Ventral Wall: ? No hernia.? Abdominal Nodes:? No enlarged retroperitoneal or mesenteric lymph nodes.? Vessels:? Aorta and inferior vena cava are normal in size.? ? PELVIS: Pelvic Organs:? Unremarkable.? ? Pelvic Nodes: Unremarkable. Miscellaneous: No inguinal hernias are seen. ? ? ? Bones:? Transitional spinal anatomy is present.? 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 ? IMPRESSION:? Left distal ureteral 7 mm calculus with moderate left hydroureteronephrosis.? ? Dictated by: Alton Padron M.D. on 01/22/2021 at 8:00 ? ? Approved by: Alton Padron M.D. on 01/22/2021 at 8:06?? MDM Narrative Medical decision making narrative: This is a 31-year-old male who comes in with known left ureteral lithiasis. Patient woke up vomiting was unable to keep down any medication. After IV antinausea medication pain medication he feels significantly better. He would like to return home he does not show any signs of infection or sepsis, his renal function is stable with no worsening or decreased function. I discussed with urology. Patient already has an appointment in the next week with them. Plan to continue Flomax for 30 days as he will likely need a stent. Adjust his pain medications and antinausea medications and patient has strict return precautions to return. Discharge Plan Departure Patient Disposition: Home Clinical Impression: Kidney stone on left side, Vomiting Instructions: DI for Kidney Stones Activity Restrictions/Additional Instructions: Follow-up with your urologist at your scheduled appointment. You can call to see if they can see you sooner. Your stone is still present today but your lab work does not reflect any injury to the kidney. You may take Tylenol up to a 1000 mg every 6 hours with 1 tablet of tramadol. If this is in adequate you may add oxycodone 1 tablet every 4-6 hours as needed. You may take nausea medication 1 tablet every 8 hours as needed. Continue Flomax. Prescription sent to [facility] in [place]. Please return for new or worsening symptoms if you have recurrent vomiting that you cannot control at home, intractable pain, decrease in her urine output, lightheadedness or passing out, black or bloody stools or other new or concerning symptoms. Prescriptions: New tamsulosin [Flomax] 0.4 mg capsule 0.4 mg PO DAILY Qty: 30 0RF oxycodone 5 mg tablet 5 mg PO Q4H PRN (Reason: pain) Qty: 20 0RF tramadol 50 mg tablet 50 mg PO Q6H PRN (Reason: pain) Qty: 14 0RF promethazine 25 mg tablet 25 mg PO TID PRN (Reason: nausea and vomiting) Qty: 10 0RF No Action citalopram 20 mg tablet 20 mg PO DAILY 0RF Zyrtec 10 mg Capsule 10 mg PO DAILY 0RF tamsulosin 0.4 mg capsule 0.4 mg PO DAILY Qty: 7 0RF hydrocodone-acetaminophen 5-325 mg tablet 1 tab PO Q6H PRN (Reason: pain) Qty: 16 0RF promethazine 25 mg tablet 25 mg PO TID PRN (Reason: nausea and vomiting) Qty: 10 0RF Referrals: Rosamaria Silvestre MD [Physician] -
[2021-01-22 07:28] LABS: Add Manual Diff / Slide Review NO; Basophils Absolute Auto 100 /uL (0-100); Basophils Percent Auto 0.9 % (0-2); Eosinophils Absolute Auto 100 /uL (0-450); Eosinophils Percent Auto 1.2 % (2-4); Hematocrit 42.8 % (41-53); Hemoglobin 14.7 g/dL (13.5-17.5); Lymphocytes Absolute Auto 1700 /uL (1100-4500); Lymphocytes Percent Auto 16.9 % (25-40); Mean Corpuscular HGB Conc 34.4 % (30-36); Mean Corpuscular Hemoglobin 30.3 PG (26-34); Mean Corpuscular Volume 88.1 fL (80-100); Monocytes Absolute Auto 600 /uL (0-900); Monocytes Percent Auto 6.1 % (3-14); Neutrophils Absolute Auto 7600 /uL (1500-7000); Neutrophils Percent Auto 74.9 % (50-75); Platelet Count 160 X10^3/uL (150-400); Red Blood Cell Count 4.86 X10^6/uL (4.5-5.9); Red Cell Distribution Width 13.5 % (11.6-14.8); White Blood Cell Count 10.1 X10^3/uL (4.5-11.0)
--- NOTE | 2021-01-22 07:30 | PC.NURSE ---
Patient states he recently had an echo for his heart, states he has an appt today for a heart monitor placement. States he woke up with nausea/vomiting and abd/flank pain.
--- NOTE | 2021-01-22 07:43 | DI.CT.S_ITS ---
PROCEDURE: CT KIDNEY URETER BLADDER (KUB) INDICATIONS: vomiting, recent L kidney stone TECHNIQUE: Axial sections were acquired from the lung bases to the pubic symphysis. Coronal and sagittal reformats were performed. For radiation dose reduction, the following was used: automated exposure control, adjustment of mA and/or kV according to patient size. COMPARISON: None. FINDINGS: Image quality: Excellent. Lung bases: Unremarkable. Heart: No significant findings. URINARY: Right Kidney: No stones or hydronephrosis. Right Ureter: No hydroureter. Left Kidney: Moderate hydronephrosis. No renal calculus. Left Ureter: A 7 mm calculus is seen in the distal left ureter at the ureterovesicular junction. There is moderate hydroureter. Bladder: Normal wall thickness. No stones. ABDOMEN: Liver: Unremarkable. Gallbladder: Unremarkable. Biliary ducts: Unremarkable. Pancreas: Unremarkable. Spleen: Unremarkable. Adrenal Glands: Unremarkable. Stomach and Bowel: Stomach, small bowel loops, and colon are unremarkable. Normal retrocecal appendix. Peritoneum: No abnormal intraperitoneal fluid. No free air. Ventral Wall: No hernia. Abdominal Nodes: No enlarged retroperitoneal or mesenteric lymph nodes. Vessels: Aorta and inferior vena cava are normal in size. PELVIS: Pelvic Organs: Unremarkable. Pelvic Nodes: Unremarkable. Miscellaneous: No inguinal hernias are seen. Bones: Transitional spinal anatomy is present. 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 IMPRESSION: Left distal ureteral 7 mm calculus with moderate left hydroureteronephrosis. Dictated by: Alton Padron M.D. on 01/22/2021 at 8:00 Approved by: Alton Padron M.D. on 01/22/2021 at 8:06
[2021-01-22] MEDS: SODIUM CHLORIDE 0.9% 1,000 ML 1000 ML IV (07:47)
[2021-01-22] MEDS: KETOROLAC 30 MG/ML VIAL 15 MG IV (07:48)
[2021-01-22] MEDS: LORazepam 2 MG/ML INJ 0.5 MG IV (07:48)
[2021-01-22 08:19] LABS: COVID19 -Nasal RAPID Negative (Negative)
--- NOTE | 2021-01-22 10:12 | PC.NURSE ---
pt starting po challenge drinking water
[2021-01-22 10:19] LABS: Amorphous Sediment Urine 3+; Bacteria Urine None Seen; RBC Urine 5-10/HPF (0-5/HPF); Transitional Epi Cells Urine 0-1/HPF (0-5/HPF); WBC Urine 1-5/HPF (0-5/HPF)
--- NOTE | 2021-01-22 10:22 | PC.NURSE ---
po challenge tolerated, no pain, no nausea, no vomiting. drank 120 cc of water
== END 2021-01-22 10:39 | disposition home or self-care (01) ==
PROVIDERS: Emergency Medicine; Emergency Provider Emergency Medicine
DX: N20.0 Calculus of kidney (principal); Z20.822 Contact with and (suspected) exposure to COVID-19; R55 Syncope and collapse
CPT/HCPCS: 36415; 74176; 80053; 81003; 81015; 83690; 85025; 87086; 87635; 93246; 96361; 96374; 96375; 99284; C9803; J1170; J1885; J2060; J2405

== ENCOUNTER → 2021-01-22 15:02 | Outpatient (CLI) | payer OTHER, SELFPAY ==
--- NOTE | 2021-02-23 08:57 | P.HOLT.S_ITS ---
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 Referral & Results Date Patient Seen: 01/22/21 Requesting provider: Emilio Jennings Indication: Syncope Duration of monitoring (days): 11 Diary information: There were 24 patient triggered events and 0 patient diary entries Patient triggered events were variably associated with (within 45 seconds) sinus rhythm and simple PVCs Data: Minimum heart rate identified was 41 beats per minute at 18:56 on 01/27/2021 Maximum heart rate was 143 beats per minute at 12:35 on 01/31/2021 There was 1 run of SVT that was 5 beats in duration at 97 beats per minute, which suggest more atrial tachycardia than true SVT Less than 1% of identified beats were ventricular or supraventricular ectopic in origin, which would classify them as rare. 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
== END ==
PROVIDERS: Referring Provider Family Medicine; Visit Provider Family Medicine
DX: R55 Syncope and collapse (principal)
CPT/HCPCS: 93246; 93248

== ENCOUNTER → 2021-01-26 07:51 | Outpatient (CLI) | payer OTHER, SELFPAY ==
--- NOTE | 2021-01-26 07:52 | DI.RAD.S_ITS ---
PROCEDURE: XR KUB INDICATIONS: Left kidney stone TECHNIQUE: One view of the abdomen acquired. COMPARISON: [facility], CT, CT KIDNEY URETER BLADDER (KUB), 01/22/2021, 7:44. FINDINGS: Surgical changes and devices: None. Bowel: Bowel gas pattern is normal. Soft tissues: 7 millimeter by 3 millimeter stone at the left UVJ is stable in position compared to prior CT scan. Small phlebolith in the lower right hemipelvis redemonstrated. Visualized solid organ contours appear normal in size. Bones: No suspicious bony lesions. IMPRESSION: 7 x 3 millimeter left UVJ stone stable in position. Dictated by: Nyla Goddard MD, PhD on 01/26/2021 at 9:58 Approved by: Nyla Goddard MD, PhD on 01/26/2021 at 9:59
== END ==
PROVIDERS: PCP Family Medicine; Referring Provider Specialist; Visit Provider Specialist
DX: N20.1 Calculus of ureter (principal)
CPT/HCPCS: 74018

== ENCOUNTER 2021-01-27 15:49 | Day surgery (SDC) | payer OTHER, SELFPAY ==
--- NOTE | 2021-01-27 | DI.RAD.S_ITS ---
PROCEDURE: XR ABDOMEN 1V INDICATIONS: CYSTO LEFT STENT PLACEMENT TECHNIQUE: One intraoperative fluoroscopic view of the abdomen acquired. COMPARISON: None. FINDINGS: Intraoperative fluoroscopic image of abdomen shows a left-sided ureteral stent in place. IMPRESSION: Fluoro guidance was provided intraoperatively for left ureteral stent placement. Dictated by: El Harrison M.D. on 01/27/2021 at 20:57 Approved by: El Harrison M.D. on 01/27/2021 at 20:57
[2021-01-27] MEDS: LACTATED RINGERS 1,000 ML 42 ML IV ×2 (16:23→19:15)
[2021-01-27 16:31] VITALS: BP 136/78; PULSE 84; RESP 14; TEMP 37.4; O2SAT 99; BMI 19.9
[2021-01-27] MEDS: MIDAZOLAM 2 MG/2 ML VIAL (16:54)
[2021-01-27 17:08] LABS: COVID19 -Nasal RAPID Negative (Negative)
--- NOTE | 2021-01-27 17:22 | PM.PREOP ---
Pre-operative Note Interval Note History & Physical reviewed/Exam performed by Physician: Yes Changes to H&P: No
[2021-01-27] MEDS: CEFAZOLIN 2 GM/20 ML SYRINGE IV (18:35)
--- NOTE | 2021-01-27 18:50 | SUR.OPER ---
Lithotomy on padded OR bed, head on pillow, arms secured on padded arm boards at <90 degrees abduction. Legs secured in padded yellow fins stirrups.
[2021-01-27] MEDS: BELLADONNA/OPIUM SUPPOSITORIES 1 EACH PR (19:00)
--- NOTE | 2021-01-27 19:36 | PM.OP.1 ---
Operative Date/Time/Diagnoses Date of procedure: 01/27/21 Time of procedure: 19:36 Pre-op diagnosis: Obstructing 7 mm left distal ureteral calculus Left renal colic Post-op diagnosis: same Procedure & Clinicians Procedure: 1. Cystoscopy/left ureteroscopic laser lithotripsy. 2. Cystoscopy/placement left ureteral stent (7 Mongolian by 22-32 cm multi-length). Same procedure as scheduled: Yes Indications: 1. Obstructing 7 mm left distal ureteral calculus. 2. Intractable left renal colic. Surgeon: Rosamaria Silvestre Click Yes if Unassisted: Yes Anesthesia Type: General Operative Notes Findings: 1. Urethra-normal caliber without annular stricture or lesion. 2. External sphincter- coapted with normal overlying urothelium. 3. Otjcfyhc-2-7.5 cm length with mild lateral lobe hyperplasia. 4. Bladder-left ureteral orifice and ureteric ridge are swollen and mildly edematous. The orifices are otherwise normal position. The right ureteral orifice has clear efflux. 5. Left ureter-index calculus had a mulberry type morphology and was ovoid in shape. It was located in general vicinity as indicated on preoperative imaging. Closure Type: not applicable Specimen(s): none sent Applied: other (Seven Mongolian by 22-32 cm multi-length stent) Estimated Blood Loss (mL): 0 Blood products transfused: none Procedure in detail: The patient was positioned in supine was administered general anesthesia. He was then repositioned semi lithotomy, the lower abdomen, genitalia, and groin were then prepped and draped in sterile fashion. The 22 Mongolian panendoscope was then passed lower urinary tract with findings as described above. A 0.35 hybrid guidewire was then selected advanced in the left collecting system under direct fluoroscopic guidance. Over this a 15 Mongolian by 6 cm balloon dilating catheter was positioned across the left ureterovesical junction the balloon inflated to 18 atmospheres. The balloon was left inflated for 5 minutes. The balloon was then deflated and backloaded off the hybrid guidewire panendoscope was then backloaded off the guidewire. Next, the semi rigid ureteral scope was prepared was advanced lower urinary tract and then advanced into the left ureteral orifice under direct visualization were upon the index calculus was encountered. All operating room personnel and patient were then fitted with laser safety eyewear. A 200 micron laser fiber was selected advanced through the ureteral scope under direct visualization. Laser lithotripsy was then commenced with excellent resultant stone fragmentation. Much of the very tiny material was evacuated from the distal ureter with a combination of hydrostatic and mechanical agitation. The semi rigid ureteral scope was then withdrawn from the left distal ureter and from the lower urinary tract. Now the panendoscope was advanced over the 0.35 safety guidewire into the bladder. A 7 Mongolian by 22-32 cm multi-length stent was then selected and advanced over the hybrid guidewire under direct and fluoroscopic guidance. A RETRIEVAL LINE WAS LEFT ATTACHED. The bladder was then drained completely and all instrumentation was removed. The patient was then repositioned supine is awake uncommon was transferred to a gurney for transfer to PACU in stable condition. Complications: none Post-operative Condition: stable Disposition: PACU Plan for aftercare: Discharge home
[2021-01-27 19:47] VITALS: BP 129/79; PULSE 65; RESP 14; TEMP 36.2; O2SAT 100
[2021-01-27 19:52] VITALS: BP 120/69; PULSE 66; RESP 15; O2SAT 100
[2021-01-27 19:57] VITALS: BP 127/77; PULSE 72; RESP 16; O2SAT 100
--- NOTE | 2021-01-27 20:00 | SUR.PHASEI ---
Patient denies pain, denies nausea; sitting up drinking water.
[2021-01-27 20:08] VITALS: BP 128/86; PULSE 79; RESP 12; O2SAT 99
== END 2021-01-27 20:26 | disposition home or self-care (01) ==
PROVIDERS: PCP Family Medicine; Referring Provider Specialist; Visit Provider Specialist
PROC: (CPT 52356; principal; 2021-01-27 17:15)
DX: N20.1 Calculus of ureter (principal); N23 Unspecified renal colic; F17.210 Nicotine dependence, cigarettes, uncomplicated; Z20.822 Contact with and (suspected) exposure to COVID-19
CPT/HCPCS: 52356; 74018; 76000; 81002; 82962; 87635; J0690; J1885; J2250; J2405; J2704; J3010